=== PATIENT | female | born 1945 | race Caucasian/White ===

== ENCOUNTER 2023-10-07 08:23 | Day surgery (SDC) | payer MEDICARE, BC ==
[2023-10-06 09:34] LABS: Basophils # (auto) 0.1 10 ^3/uL (0-0.2); Basophils % (auto) 0.9 % (0.0-2.0); Eosinophils # (auto) 0.3 10 ^3/uL (0-0.8); Hematocrit 44.3 % (36.0-46.0); Hemoglobin 14.6 g/dL (12.2-16.2); Lymphocytes # (auto) 1.7 10 ^3/uL (0.4-5.4); Mean Corpuscular Volume 90.9 fL (80.0-100.0); Monocytes # (auto) 0.7 10 ^3/uL (0-1.3); Monocytes % (auto) 11.7 % (0.0-12.0); Neutrophils % (auto) 52.4 % (37.0-80.0); Nucleated Red Blood Cells % 0.1 %; Red Blood Cells 4.87 10^6/uL (4.0-5.20); White Blood Cell 5.8 10^3/uL (4.4-10.8)
[2023-10-06 09:54] LABS: Alanine Aminotransferase 20 U/L (7-40); Albumin 4.5 g/dL (3.2-4.8); Alkaline Phosphatase 107 U/L (46-116); Anion Gap 6 (5-15); Aspartate Aminotransferase 34 U/L (13-40); Bilirubin, Total 0.5 mg/dL (0.2-1.0); Blood Urea Nitrogen 12 mg/dL (9-23); Calcium 9.8 mg/dL (8.5-10.1); Carbon Dioxide 28 mmol/L (20-30); Chloride 105 mmol/L (98-107); Glucose 92 mg/dL (74-106); Potassium 4.3 mmol/L (3.5-5.1); Sodium 139 mmol/L (136-145); Total Protein 7.5 g/dL (5.7-8.2)
[2023-10-06 10:34] LABS: INR 0.98 (0.9-1.15); Partial Thromboplastin Time 24.5 SEC (24.5-34.5); Prothrombin Time 10.4 sec (9.3-11.8)
[2023-10-06 13:25] LABS: Large Platelets FEW; Platelet Estimate Adequate
[2023-10-07] MEDS ORDERED: SODIUM CHLORIDE LOCK 10 ML ONE (09:08)
[2023-10-07] MEDS ORDERED: diphenhdrAMINE HCL 50 MG/1 ML VL ONE (09:08)
[2023-10-07 09:26] VITALS: PULSE 90; RESP 20; O2SAT 93
[2023-10-07] MEDS: LIDOCAINE VISCOUS 2% 15ML UD ONE (09:27)
[2023-10-07] MEDS: fentaNYL CITRATE 100 MCG/2 ML VL ONE (09:28)
[2023-10-07] MEDS: MIDAZOLAM HCL 5 MG/ML-1ML VIAL ONE (09:28)
[2023-10-07 09:53] VITALS: TEMP 97.5; O2SAT 96
[2023-10-07 10:30] VITALS: BP 123/66; PULSE 61; RESP 17; O2SAT 95
== END 2023-10-07 10:32 | disposition home or self-care (01) ==
LOC: GI 08:23
PROVIDERS: ATTEND Internal Medicine Gastroenterology
DX: R13.10 Dysphagia, unspecified (principal); K22.2 Esophageal obstruction; K44.9 Diaphragmatic hernia without obstruction or gangrene; K20.90 Esophagitis, unspecified without bleeding; K29.50 Unspecified chronic gastritis without bleeding; I10 Essential (primary) hypertension; Z90.49 Acquired absence of other specified parts of digestive tract; Z91.09 Other allergy status, other than to drugs and biological substances; Z79.899 Other long term (current) drug therapy; Z98.890 Other specified postprocedural states
CPT/HCPCS: 36415; 43239; 43249; 80053; 85025; 85610; 85730; 88305; 88312; 88342; J2250; J3010; J7030; 99152